=== PATIENT | male | born 1955 ===

== ENCOUNTER 2021-09-24 09:18 | Day surgery (SDC) | payer OTHER ==
[~2021-09-24 09:18] MED LIST: Lactated Ringers 1,000 ML IV SCH; Sodium Chloride 0.9% 10 ML Syringe FLUSH PRN; Sodium Chloride 0.9% 2.5 ML Syringe FLUSH PRN; Sodium Chloride 0.9% 20 ML SDV IV PRN; ceFAZolin 2 GM in Premix Bag 1 BAG IV ONE
--- NOTE | 2021-09-24 09:43 | PCM.PREANE ---
Preanesthetic Assessment - Procedure Proposed Procedure: Port-a-cath removal - Anesthesia/Transfusion/Family Hx Anesthesia History: Prior Anesthesia Without Reaction Family History of Anesthesia Reaction: No Transfusion History: No Prior Transfusion(s) - Review of Systems General: No Symptoms Pulmonary: No Symptoms (Asthma with PRN MDI) Cardiovascular: No Symptoms Gastrointestinal: No Symptoms Neurological: No Symptoms Other: Reports: None (h/o lymphoma, s/p chemo) - Physical Assessment NPO Status Date: 09/23/21 NPO Status Time: 19:00 Height: 6 ft Weight: 99.79 kg ASA Class: 2 Mental Status: Alert & Oriented x3 Airway Class: Mallampati = 3 Dentition: Reports: Normal Dentition Thyro-Mental Finger Breadths: 3 Mouth Opening Finger Breadths: 3 ROM/Head Extension: Full Lungs: Clear to Auscultation, Normal Respiratory Effort Cardiovascular: Regular Rate, Regular Rhythm - Allergies Allergies/Adverse Reactions: Allergies Allergy/AdvReac Type Severity Reaction Status Date / Time cat dander Allergy Other Verified 09/18/21 13:04 dust Allergy Other Uncoded 09/18/21 13:04 - Acknowledgements Anesthesia Type Planned: MAC Pt an Appropriate Candidate for the Planned Anesthesia: Yes Alternatives and Risks of Anesthesia Discussed w Pt/Guardian: Yes Pt/Guardian Understands and Agrees with Anesthesia Plan: Yes PreAnesthesia Questionnaire HEENT History: Reports: None Cardiovascular History: Reports: None Respiratory History: Reports: Asthma Gastrointestinal History: Reports: None Genitourinary History: Reports: None Musculoskeletal History: Reports: Fracture Other Musculoskeletal History: hx of fx arm Neurological History: Reports: None Psychiatric History: Reports: None Endocrine/Metabolic History: Reports: None Hematologic History: Reports: None Immunologic History: Reports: Other (See Below) Other Immunologic History: has finished Chemo Oncologic (Cancer) History: Reports: Lymphoma Other Oncologic History: Follicular Lymphoma Dermatologic History: Reports: None - Infectious Disease History Infectious Disease History: Reports: None - Past Surgical History Head Surgeries/Procedures: Reports: None HEENT Surgical History: Reports: Naso-Sinus Surgery Cardiovascular Surgical History: Reports: Vascular Surgery Other Cardiovascular Surgeries/Procedures: right Port-a-Cath placement Respiratory Surgical History: Reports: None GI Surgical History: Reports: Appendectomy, Other (See Below) Other GI Surgeries/Procedures: Choledochal stent placement and removal, liver bx Male Surgical History: Reports: Vasectomy Oncologic Surgical History: Reports: None - SUBSTANCE USE Tobacco Use Status *Q: Former Tobacco User Tobacco Use Within Last Twelve Months: No Recreational Drug Use History: No - HOME MEDS Home Medications: Home Meds Albuterol [Ventolin HFA] 2 inh INH ASDIRECTED PRN 09/15/16 [History] Albuterol Sulfate 2.5 mg NEB Q4H PRN 09/18/21 [History] Ascorbic Acid [Vitamin C] 100 mg PO DAILY 09/18/21 [History] Budesonide [Pulmicort] 0.5 mg NEB DAILY 09/18/21 [History] Cholecalciferol (Vitamin D3) [Vitamin D3] 25 mcg PO DAILY 09/18/21 [History] Zinc Sulfate [Orazinc] 110 mg PO DAILY 09/18/21 [History] diphenhydrAMINE HCL [Benadryl Allergy] 25 mg PO BEDTIME PRN 09/18/21 [History] - CURRENT (IN HOUSE) MEDS Current Meds: Current Medications Lactated Ringer's (Ringers, Lactated) 1,000 mls @ 125 mls/hr IV ASDIRECTED SHLOMO Sodium Chloride (Sodium Chloride 0.9% 2.5 Ml Syringe) 2.5 ml FLUSH ASDIRECTED PRN PRN Reason: Keep Vein Open Sodium Chloride (Sodium Chloride 0.9% 20 Ml Sdv) 10 ml IV ASDIRECTED PRN PRN Reason: IV Use Sodium Chloride (Sodium Chloride 0.9% 10 Ml Syringe) 10 ml FLUSH ASDIRECTED PRN PRN Reason: Keep Vein Open Discontinued Medications Cefazolin Sodium/Dextrose 2 gm (/ Premix) 50 mls @ 100 mls/hr IV ONETIME ONE Stop: 09/23/21 12:43
[2021-09-24] MEDS ORDERED: propofoL 50 ML ONE (10:02)
[2021-09-24] MEDS ORDERED: Midazolam 1 MG/ML 2 ML SDV ONE (10:03)
[2021-09-24] MEDS ORDERED: fentaNYL 100 MCG/2 ML SDV ONE (10:04)
[2021-09-24] MEDS ORDERED: Octyl 2-Cyanoacrylate 1 Tube ONE (10:44)
[2021-09-24] MEDS ORDERED: Bupivacaine 0.5% 10 ML SDV ONE (10:44)
[2021-09-24] MEDS ORDERED: Lidocaine 1% 20 ML MDV ONE (10:53)
--- NOTE | 2021-09-24 11:37 | PCM.POSTAN ---
POST ANESTHESIA ASSESSMENT - MENTAL STATUS Mental Status: Alert, Oriented - VITAL SIGNS Vital Signs: Last Vital Signs Temp 97.0 F 09/24/21 09:34 Pulse 77 09/24/21 09:34 Resp 16 09/24/21 09:34 BP 140/77 09/24/21 09:34 Pulse Ox 98 09/24/21 09:34 - RESPIRATORY Respiratory Status: Respiratory Rate WNL, Airway Patent, O2 Saturation Stable - CARDIOVASCULAR CV Status: Pulse Rate WNL, Blood Pressure Stable - GASTROINTESTINAL GI Status: No Symptoms - PAIN Pain Score: 0 - POST OP HYDRATION Hydration Status: Adequate & Stable
--- NOTE | 2021-09-24 11:46 | PCM48HPAN ---
Post Anesthesia Note - EVALUATION WITHIN 48HRS OF ANESTHETIC Vital Signs in Normal Range: Yes Patient Participated in Evaluation: Yes Respiratory Function Stable: Yes Airway Patent: Yes Cardiovascular Function Stable: Yes Hydration Status Stable: Yes Pain Control Satisfactory: Yes Nausea and Vomiting Control Satisfactory: Yes Mental Status Recovered: Yes Vital Signs: Last Vital Signs Temp 97.2 F 09/24/21 11:31 Pulse 74 09/24/21 11:41 Resp 16 09/24/21 11:41 BP 105/70 09/24/21 11:41 Pulse Ox 96 09/24/21 11:41 - COMMENTS/OBSERVATIONS Free Text/Narrative:: Pt doing well post-op. VSS. No apparent anesthetic complications. Dr. Mathew Lee
--- NOTE | 2021-09-24 11:46 | PCM.OPNOTE ---
- General Post-Op/Procedure Note Date of Surgery/Procedure: 09/24/21 Operative Procedure(s): RIght internal jugular port a cath removal Findings: Intact RIJ port Pre Op Diagnosis: Port a cath in place, lymphoma Post-Op Diagnosis: same Anesthesia Technique: Local, MAC Primary Surgeon: Karla Velasquez Fluid Replacement, Intraop: 800 EBL in mLs: 2 Condition: Good Free Text/Narrative:: Intake & Output 09/23/21 09/24/21 09/24/21 22:59 06:59 14:59 Intake Total 900 Balance 900
[2021-09-24 11:54] VITALS: BP 111/70; PULSE 70
--- NOTE | 2021-09-24 12:46 | OR ---
SURGEON: KARLA VELASQUEZ MD DATE OF PROCEDURE: 09/24/2021 PREOPERATIVE DIAGNOSIS: Right internal jugular Port-A-Cath, history of lymphoma. POSTOPERATIVE DIAGNOSIS: Right internal jugular Port-A-Cath, history of lymphoma. PROCEDURE PERFORMED: Removal of right internal jugular Port-A-Cath. PRIMARY SURGEON: Karla Velasquez MD ANESTHESIA: MAC, local. FLUIDS: 800 mL crystalloid. EBL: 2 mL. FINDINGS: Intact right internal jugular Port-A-Cath. COMPLICATIONS: None. INDICATIONS: The patient is a 66-year-old male who has completed his treatment for lymphoma and would like to have his Port-A-Cath removed. The patient and I discussed the procedure, expected perioperative course, and the risks. He verbalized understanding and wishes to proceed. PROCEDURE IN DETAIL: The patient was brought into the OR, placed on the OR table in supine position. A time-out was completed verifying the patient's name, age, date of , allergies, and procedure to be performed. Monitored anesthesia care was induced. Continuous oxygen was provided via face mask throughout the procedure. After adequate sedation was achieved, I anesthetized the area overlying the Port- A-Cath site on the right anterior chest wall. A #15 blade was used to open up his previous incision. Cautery was used to dissect down to the level of the Port-A-Cath itself. The port was covered in a scar capsule. This was entered using cautery. I then used sharp dissection to excise the port from its attachments to the surrounding scar tissue. I used sharp dissection along the catheter Port-A-Cath tubing connection site. Once this was completely freed up, pressure was held on the right lower neck, and gentle steady pressure was used to pull the Port-A-Cath out. It appeared to be intact. Pressure was held at the neck for 1 minute. I then released the pressure and inspected my operative site. It appeared to be hemostatic. The wound was then closed with a running 3- 0 Vicryl suture in the deep tissues. I closed the tissue underneath the skin with interrupted 3-0 Vicryl suture, and the skin was closed with a running 4-0 Monocryl stitch. Dermabond and sterile dressings were applied. The patient tolerated the procedure well, was extubated, and taken to PACU in stable condition. All counts were complete and correct at the end of the case. LEMEASH / MODL /[id number]
== END 2021-09-24 12:20 | disposition home or self-care (01) ==
LOC: MW.SDS 09:18
PROVIDERS: ATTEND Surgery
DX: Z45.2 Encounter for adjustment and management of vascular access device (principal); C82.30 Follicular lymphoma grade IIIa, unspecified site; F41.9 Anxiety disorder, unspecified; J45.20 Mild intermittent asthma, uncomplicated; R73.03 Prediabetes; Z91.048 Other nonmedicinal substance allergy status; Z79.899 Other long term (current) drug therapy; Z90.49 Acquired absence of other specified parts of digestive tract; Z98.890 Other specified postprocedural states
CPT/HCPCS: 36590; A9270; J0690; J2250; J2704; J3010; J3490; J7120; 00400

== ENCOUNTER 2023-03-22 12:45 | Emergency (ER) | payer BC ==
[2023-03-22] MEDS ORDERED: Dexamethasone 4 MG Tab PO STA (13:20)
[2023-03-22] MEDS ORDERED: Albuterol/Ipratropium 3.0-0.5 MG/3 ML Neb Soln NEB STA (13:21)
[2023-03-22 15:00] VITALS: BP 127/71; PULSE 94
== END 2023-03-22 14:59 | disposition home or self-care (01) ==
LOC: MW.ED 12:45
DX: J45.901 Unspecified asthma with (acute) exacerbation (principal); A69.20 Lyme disease, unspecified; Z91.09 Other allergy status, other than to drugs and biological substances; Z79.51 Long term (current) use of inhaled steroids; Z20.822 Contact with and (suspected) exposure to COVID-19; Z85.72 Personal history of non-Hodgkin lymphomas
CPT/HCPCS: 71046; 87635; 99285; J8540; 99284; J7620-GY; U0002